=== PATIENT | female | born 1980 | race Caucasian/White ===

== ENCOUNTER → 2019-02-09 | Outpatient (CLI) | payer BC ==
[~2019-02-09] MED LIST: LIDOCAINE 1% 5 ML SDV ONE; MIDAZOLAM 2 MG/2 ML VIAL ONE; fentaNYL 100 MCG/2 ML INJ ONE
== END ==
LOC: FIMAGING 13:20
PROVIDERS: ATTEND Student in an Organized Health Care Education/Training Program
DX: O09.522 Supervision of elderly multigravida, second trimester (principal); Z3A.19 19 weeks gestation of pregnancy
CPT/HCPCS: J2250; J3010